=== PATIENT | female | born 1940 | race Caucasian/White ===

== ENCOUNTER → 2017-03-22 | Outpatient (CLI) | payer OTHER, MEDICARE | LOC: BMCIMAGING 09:40 | PROVIDERS: ATTEND Physical Medicine & Rehabilitation | DX: Z13.820 Encounter for screening for osteoporosis (principal); M85.80 Other specified disorders of bone density and structure, unspecified site; M54.5 Low back pain ==

== ENCOUNTER → 2017-04-15 | Outpatient (CLI) | payer OTHER, MEDICARE | LOC: BRMIMAGING 13:00 | DX: Z12.31 Encounter for screening mammogram for malignant neoplasm of breast (principal) | CPT/HCPCS: G0202 ==

== ENCOUNTER → 2017-10-15 | Outpatient (CLI) | payer OTHER, MEDICARE | LOC: FIMAGING 09:34 | PROVIDERS: ATTEND Radiology Diagnostic Radiology | DX: M51.36 Other intervertebral disc degeneration, lumbar region (principal); M43.16 Spondylolisthesis, lumbar region; M12.88 Other specific arthropathies, not elsewhere classified, other specified site; M54.6 Pain in thoracic spine ==

== ENCOUNTER 2017-11-20 12:32 | Day surgery (SDC) | payer OTHER, MEDICARE ==
[2017-11-20] MEDS ORDERED: NALOXONE HCL 0.4 MG/ML INJ IVP PRN (12:51)
[2017-11-20] MEDS ORDERED: FLUMAZENIL 0.5 MG/5 ML MDV IVP PRN (12:51)
[2017-11-20] MEDS ORDERED: MEPERIDINE 25 MG/ML SYR IVP PRN (12:51)
[2017-11-20] MEDS ORDERED: fentaNYL 100 MCG/2 ML INJ IVP PRN (12:51)
[2017-11-20] MEDS ORDERED: MIDAZOLAM 2 MG/2 ML VIAL IVP PRN (12:51)
[2017-11-20] MEDS ORDERED: MIDAZOLAM 2 MG/2 ML VIAL ONE (12:55)
[2017-11-20] MEDS ORDERED: FLUMAZENIL 0.5 MG/5 ML MDV IVP ONE (12:55)
[2017-11-20] MEDS ORDERED: NALOXONE HCL 0.4 MG/ML INJ ONE (12:55)
[2017-11-20] MEDS ORDERED: fentaNYL 100 MCG/2 ML INJ ONE (12:57)
[2017-11-20] MEDS ORDERED: NS 1,000 ML IV SCH (13:00)
[2017-11-20 13:33] VITALS: PULSE 60
--- NOTE | 2017-11-20 15:17 | PDGENHP ---
History & Physical Chief Complaint: BACK PAIN. History of Present Illness: COMPRESSION FRACTURE THORACOLUMBAR SPINE. PAIN NOT SEVERE AND FRACTURE TOO CHRONIC FOR KHPHOPLASTY. TRYING AILEEN TO SEE IF IT'LL HELP PAIN. Pertinent Past, Social, Family History: DDD, KNEE REPLACEMENT, HIP REPLACEMENT, TONSILLECTMY, SHOULDER REPLACEMENT, COLONOSCOPY, CHRONIC GASTRITIS Relevant Physical Exam: PAIN NOT BAD TODAY. Cardiorespiratory Assessment: RRR, CTA
--- NOTE | 2017-11-20 15:18 | PDPROPOC ---
Sedation Plan of Care Sedation Plan of Care: vital signs stable, mental status noted, patient educated of risks, benefits, alternatives, patient can tolerate sedation ASA Classification: ASA 2 Planned drugs: fentanyl, midazolam Mallampati Score: Class 2 Mallampati Reference Image: Patient passed 3-3-2 rule?: Yes
[2017-11-20] MEDS ORDERED: TRIAMCINOLONE ACETONIDE 200 MG/5 ML MDV IM ONE (16:08)
[2017-11-20] MEDS ORDERED: LIDOCAINE 1% 300 MG/30 ML SDV ONE (16:08)
[2017-11-20] MEDS ORDERED: ONDANSETRON 4 MG/2 ML VIAL IVP PRN (16:21)
--- NOTE | 2017-11-20 16:40 | PDRADPN ---
Radiology Procedure Note Date of Procedure: 11/20/17 Radiologist: Katya La Anesthesia: IV Sedation (fentanyhl and versed) Pre-op Diagnosis: back pain Post-op Diagnosis: same Indication: trial of blossom Procedure: L2-3 BLOSSOM Finding(s): see report Inf/Abcess present in the surg proc area at time of surgery?: No Complications: None
[2017-11-20 16:57] VITALS: O2SAT 95
[2017-11-20 17:07] VITALS: BP 138/72; RESP 15; TEMP 98.4
== END 2017-11-20 17:20 | disposition home or self-care (01) ==
LOC: FIMAGING 12:32
PROVIDERS: ATTEND Radiology Diagnostic Radiology
DX: M48.55XA Collapsed vertebra, not elsewhere classified, thoracolumbar region, initial encounter for fracture (principal); Z96.649 Presence of unspecified artificial hip joint; Z96.659 Presence of unspecified artificial knee joint; Z96.619 Presence of unspecified artificial shoulder joint; K29.50 Unspecified chronic gastritis without bleeding
CPT/HCPCS: J2250; J2310; J3010; J3301

== ENCOUNTER → 2019-04-17 | Outpatient (CLI) | payer OTHER, MEDICARE | LOC: BMCIMAGING 10:53 | PROVIDERS: ATTEND Internal Medicine | DX: Z13.820 Encounter for screening for osteoporosis (principal); M85.89 Other specified disorders of bone density and structure, multiple sites; Z87.81 Personal history of (healed) traumatic fracture; Z78.0 Asymptomatic menopausal state ==